=== PATIENT | female | born 1995 | race African-American/Black ===

== ENCOUNTER 2023-08-23 15:26 | Emergency (ER) | payer MEDICAID ==
[~2023-08-23] VITALS: Ht 160 cm; Wt 50.0 kg
[2023-08-23 15:31] VITALS: O2SAT 99
[2023-08-23 17:18] LABS: BASOPHILS % 0.8 % (0.0-2.0); DIFFERENTIAL COMMENT 0; EOSINOPHILS % 0.2 % (0.0-5.0); HEMATOCRIT. 31.3 % (36.0-48.0); HEMOGLOBIN. 9.7 g/dL (12.0-16.0); LYMPHOCYTES % 7.7 % (20.0-50.0); MEAN CORPUSCULAR HEMOGLOBIN 24.5 pg (28.0-32.0); MEAN CORPUSCULAR HGB CONC 31.1 g/dL (31.0-37.0); MEAN CORPUSCULAR VOLUME 78.7 fL (81.0-99.0); MEAN PLATELET VOLUME 9.2 fl (7.4-10.4); MONOCYTES % 4.1 % (2.0-8.0); NEUTROPHILS % 87.2 % (40.0-76.0); PLATELET 279 x1000/uL (130-400); RED BLOOD CELL COUNT 3.98 mill/uL (4.2-5.4); RED CELL DISTRIBUTION WIDTH 20.3 % (11.6-14.6); WHITE BLOOD COUNT 13.4 x1000/uL (4.5-11.0)
[2023-08-23 17:38] LABS: ALANINE AMINOTRANSFERASE 53 IU/L (10-49); ALBUMIN 4.6 g/dL (3.2-4.8); ASPARTATE AMINOTRANSFERASE 158 IU/L (<34); CALCIUM 8.7 mg/dL (8.7-10.4); CARBON DIOXIDE 30 mEq/L (21-32); CHLORIDE 96 mEq/L (98-107); CREATININE 0.6 mg/dL (0.6-1.0); GLUCOSE 194 mg/dL (70-105); HCG SCREEN NEGATIVE; PROTEIN TOTAL 9.4 g/dL (6.0-8.3); SODIUM 133 mEq/L (136-145); TROPONIN I HIGH SENSITIVITY 4 ng/L (3.0-34)
[2023-08-23 17:42] LABS: POTASSIUM 2.6 mEq/L (3.5-5.1); UREA NITROGEN BLOOD < 5 mg/dL (9-23)
[2023-08-23] MEDS ORDERED: KCL 10MEQ/50ML PREMIX 50 ML IV SCH (18:00)
[2023-08-23] MEDS: POTASSIUM CHLORIDE 20MEQ TABLET SR PO ONE (18:27)
[2023-08-23] MEDS: KCL 10MEQ/50ML PREMIX 50 ML IV SCH (19:14)
[2023-08-23] MEDS: LACTATED RINGERS 1,000 ML IV SCH (19:23)
[2023-08-23] MEDS ORDERED: POTA-205 MT (20:22)
[2023-08-23 20:35] LABS: CLARITY URINE CLOUDY (CLEAR); COLOR URINE ORANGE (YELLOW); GLUCOSE URINE TRACE (NEGATIVE); KETONES URINE TRACE (NEGATIVE); LEUKOCYTE ESTERASE URINE 1+ (NEGATIVE); NITRITE URINE NEGATIVE (NEGATIVE); OCCULT BLOOD URINE TRACE (NEGATIVE); PH URINE 6.5 (4.5-8.0); PROTEIN URINE 1+ (NEGATIVE); SPECIFIC GRAVITY URINE 1.019 (1.005-1.030)
[2023-08-23 20:45] LABS: CARBON DIOXIDE 30 mEq/L (21-32); CHLORIDE 98 mEq/L (98-107); CREATININE 0.6 mg/dL (0.6-1.0); GLUCOSE 150 mg/dL (70-105); POTASSIUM 3.1 mEq/L (3.5-5.1); SODIUM 134 mEq/L (136-145)
[2023-08-23 20:47] LABS: BACTERIA URINE 2+; SQUAMOUS EPITHELIAL CELL URINE 2+ /lpf (RARE/1+)
[2023-08-23 20:47] LABS: TROPONIN I HIGH SENSITIVITY 4 ng/L (3.0-34)
[2023-08-23 20:48] LABS: UREA NITROGEN BLOOD < 5 mg/dL (9-23)
[2023-08-23 20:48] LABS: MUCUS URINE 2+ /lpf (< = 2+); RBC URINE 0-2 /hpf (0-2)
[2023-08-23] MEDS ORDERED: BACITRACIN ZINC OINT UDPKT TOP ONE (21:30)
[2023-08-23 22:49] VITALS: BP 171/99; PULSE 89; RESP 19; TEMP 98.9
== END 2023-08-23 22:50 | disposition home or self-care (01) ==
LOC: ER 15:26
DX: R00.2 Palpitations (principal); E87.6 Hypokalemia
CPT/HCPCS: 80053; 80048; 81003; 84703; 85025; 85379; 84484; 36415; 71045; 93005; 96365; 96366; 99285; J3480; Z7610 ×2